=== PATIENT | male | born 1980 | race Caucasian/White ===

== ENCOUNTER 2017-08-19 21:56 | Emergency (ER) | payer BC ==
[~2017-08-19] VITALS: Ht 190.5 cm; Wt 136.3 kg
[2017-08-19 22:37] LABS: HEMATOCRIT 45.8 % (38.0-50.0); HEMOGLOBIN 15.7 G/DL (12.5-16.6); MCH 31.4 PG (29.0-34.0); MCHC 34.3 G/DL (30.0-36.0); MCV 91.6 FL (86-99); PLATELET COUNT 209 K/uL (156-360); RBC DIS.WIDTH-CV 12.9 % (11.8-14.6); RBC DIS.WIDTH-SD 43.2 % (39-53); WHITE BLOOD COUNT 7.7 K/uL (4.1-10.2)
[2017-08-19 22:45] LABS: CHLORIDE 107 mEq/L (99-109); SODIUM 141 mEq/L (136-147)
[2017-08-19 22:47] LABS: GLUCOSE 91 mg/dL (70-99)
[2017-08-19 22:50] LABS: SERUM ETHYL ALCOHOL < 10 mg/dL
[2017-08-19 22:51] LABS: CREATININE 1.1 mg/dL (0.6-1.3); GFR ESTIMATE (CALCULATED) > 59 mL/min/ (58.99-99999)
[2017-08-19] MEDS ORDERED: LAMICTAL25 MG PO (22:51)
[2017-08-19] MEDS ORDERED: RISPERDAL0.25 MG PO (22:52)
[2017-08-19] MEDS ORDERED: MINIPRESS2 MG PO (22:52)
[2017-08-19 22:53] LABS: UREA NITROGEN (BUN) 14 mg/dL (9-23)
[2017-08-19 22:54] LABS: ACETAMINOPHEN (TYLENOL) < 10 mcg/mL (10-30); SALICYLATE < 5.0 MG/DL (15-30)
[2017-08-19 23:25] LABS: AMPHETAMINE NEGATIVE (500 ng/mL); BARBITURATES NEGATIVE (200 ng/mL); BENZODIAZEPINES NEGATIVE (150 ng/mL); BUPRENORPHINE NEGATIVE (10 ng/mL); COCAINE NEGATIVE (150 ng/mL); METHADONE NEGATIVE (200 ng/mL); METHAMPHETAMINE NEGATIVE (500 ng/mL); OPIATES (MORPHINE) NEGATIVE (100 ng/mL); OXYCODONE NEGATIVE (100 ng/mL); PHENCYCLIDINE NEGATIVE (25 ng/mL); PROPOXYPHENE NEGATIVE (300 ng/mL); THC CANNABINOIDS NEGATIVE (50 ng/mL); TRICYCLIC ANTIDEPRESSANTS NEGATIVE (300 ng/mL)
[2017-08-20 02:42] VITALS: BP 128/81
== END 2017-08-20 02:46 ==
LOC: EME 21:56
PROVIDERS: Emergency Medicine
DX: R45.851 Suicidal ideations (principal); F31.81 Bipolar II disorder; F32.9 Major depressive disorder, single episode, unspecified
CPT/HCPCS: 80048; 85027; 90837; 99281; 99285; G0480